=== PATIENT | male | born 1965 | race Caucasian/White ===

== ENCOUNTER → 2016-10-05 | Outpatient (REF) | payer OTHER ==
[~2016-10-05] MED LIST: AMLO10TA2 PO; ASP325T PO; HCT25T PO; LISI10TA PO; LISI1TAB8 PO; METO-272 PO; METO25TA2 PO; NIAC10002 PO; OMEG-160 PO; ROSU40TA PO
== END | disposition home or self-care (01) ==
LOC: RAD 07:55
PROVIDERS: ATTEND Nurse Practitioner Family

== ENCOUNTER → 2016-11-13 | Outpatient (CLI) | payer OTHER ==
[~2016-11-13] MED LIST changes: +CATHETER FLUSH 10 ML SYR IV PRN
[2016-11-13 09:27] VITALS: BP 140/91
[2016-11-13 09:35] VITALS: BP 172/60
[2016-11-13 09:37] VITALS: BP 165/94
[2016-11-13 09:39] VITALS: BP 165/95
--- NOTE | 2016-11-13 13:06 | STRESS TEST ---
DATE OF SERVICE: 11/13/2016 LEXISCAN MYOVIEW STRESS TEST REPORT: REFERRING PHYSICIAN: Dr. Jose Chance Baseline heart rate is 87. Baseline blood pressure 181/85. Baseline EKG is sinus rhythm with no ischemic changes. In summary, the patient was injected with 10.75 mCi of technetium-99 Myoview and the resting images were obtained. Then, the patient started exercising with the baseline heart rate, blood pressure and EKG mentioned above. At peak stress level, he was injected with 29.3 mCi of technetium-99 Myoview. The patient was able to exercise for a total of 4 minutes and 52 seconds on standard Miky protocol, achieving maximum heart rate of 156, which is 91% of maximum expected heart rate. With peak exercise level, EKG was showing minimal nondiagnostic changes. Blood pressure was 184/92. During recovery, heart rate and blood pressure returned to baseline. EKG returned to baseline. The resting and stress images were reviewed and compared in the short axis, horizontal long axis, and vertical long axis views. Review of the images showed diaphragmatic attenuation with decreased uptake involving the mid to apical inferior wall and inferolateral wall and anterolateral wall. SSS is 11, SDS 5, TID value 1.01. On the gated images, the left ventricle appeared to be normal size with normal contractility. Calculated ejection fraction 68%. CONCLUSION: 1. Fair exercise tolerance, a total of 4 minutes 52 seconds on standard Miky protocol, total of 6.8 METS achieving 91% of maximum expected heart rate. 2. Baseline hypertension persisted throughout test. 3. Minimal nondiagnostic EKG changes with exercise returned to baseline during recovery. 4. Diaphragmatic attenuation with mild ischemia involving the mid to apical inferior wall, inferolateral wall and anterolateral wall. 5. Normal left ventricular size with normal contractility. Calculated ejection fraction 68%. Job ID: [id number] DocumentID: [id number] Dictated Date: 11/13/2016 11:40:52 Instant Powder Supervisor Date: 11/13/2016 13:02:47 Dictated By: QUE CONDE MD
== END ==
LOC: CARD 08:01
PROVIDERS: ATTEND Physician Assistant
DX: I25.10 Atherosclerotic heart disease of native coronary artery without angina pectoris (principal); I10 Essential (primary) hypertension; E78.2 Mixed hyperlipidemia; E66.01 Morbid (severe) obesity due to excess calories
CPT/HCPCS: 78452; 93017

== ENCOUNTER → 2016-11-16 | Outpatient (CLI) | payer OTHER ==
[~2016-11-16] MED LIST changes: +ASPI-983 PO; -CATHETER FLUSH 10 ML SYR IV PRN; +CLOP75TA28 PO; -METO-272 PO; +METO-370 PO
== END ==
LOC: CARD 13:05
PROVIDERS: ATTEND Physician Assistant
DX: I25.10 Atherosclerotic heart disease of native coronary artery without angina pectoris (principal); I10 Essential (primary) hypertension; E78.2 Mixed hyperlipidemia; E66.01 Morbid (severe) obesity due to excess calories
CPT/HCPCS: 93306

== ENCOUNTER 2016-12-06 06:34 | Day surgery (SDC) | payer OTHER ==
[2016-12-06] VITALS (26 sets, daily range): BP systolic 90–152; BP diastolic 51–101
[~2016-12-06] VITALS: Ht 160 cm; Wt 104.3 kg
[~2016-12-06 06:34] MED LIST changes: -ASPI-983 PO; -CLOP75TA28 PO; +METO-272 PO; -METO-370 PO
[2016-12-06] MEDS ORDERED: NS IV 1000 ML 1,000 ML ONE (06:44)
[2016-12-06] MEDS ORDERED: HEParin (CATH LAB) 2,000 ML IV ONE (06:44)
[2016-12-06 07:14] LABS: MEAN PLATELET VOLUME 8.3 FL (7.4-10.4); RED BLOOD COUNT 5.25 10^6/uL (4.35-5.85); RED CELL DISTRIBUTION WIDTH 12.8 % (10.0-14.5); WHITE BLOOD COUNT 8.3 10^3/uL (4.3-11.0)
[2016-12-06 07:25] LABS: INR 0.9 (0.8-1.4); PROTHROMBIN TIME PATIENT 12.5 SEC (12.2-14.7)
[2016-12-06] MEDS ORDERED: CLOP75TA28 PO (07:28)
[2016-12-06] MEDS: NS IV 1000 ML 1,000 ML IV SCH ×4 (07:29→20:18)
[2016-12-06] MEDS ORDERED: INFLUENZA TRIvalent 2017-2018 0.5 ML/45 MCG SYR IM ONE (07:30)
[2016-12-06] MEDS ORDERED: MIDAZOLAM 5 MG/5 ML (VERSED) VIAL ONE (07:31)
[2016-12-06] MEDS ORDERED: fentaNYL INJECTION 100 MCG/2 ML AMP ONE ×2 (07:31→08:19)
[2016-12-06 07:38] LABS: ALANINE AMINOTRANSFERASE 40 U/L (0-55); ALBUMIN 4.6 GM/DL (3.2-4.5); ANION GAP 10 MMOL/L (5-14); ASPARTATE AMINO TRANSFERASE 22 U/L (5-34); BILIRUBIN,TOTAL 0.4 MG/DL (0.1-1.0); BLOOD UREA NITROGEN 8 MG/DL (7-18); BUN/CREATININE RATIO 10; CALCIUM 9.7 MG/DL (8.5-10.1); CARBON DIOXIDE 26 MMOL/L (21-32); CHLORIDE 97 MMOL/L (98-107); CHOLESTEROL 173 MG/DL (< 200); CREATININE SERUM 0.77 MG/DL (0.60-1.30); DIRECT LDL 100 MG/DL (1-129); GFR ESTIMATED > 60; GLUCOSE 117 MG/DL (70-105); POTASSIUM 3.7 MMOL/L (3.6-5.0); SODIUM 133 MMOL/L (135-145); TOTAL PROTEIN 7.6 GM/DL (6.4-8.2); TRIGLYCERIDES 327 MG/DL (<150); VLDL CHOLESTEROL 65 MG/DL (5-40)
--- NOTE | 2016-12-06 07:55 | Diagnostic Imaging Report ---
INDICATION: Coronary artery disease and hypertension. 0721 hours Comparison is made study of 06/23/2015. FINDINGS: Heart size and pulmonary vascularity are within normal limits, and the lungs are clear, bilaterally. There has been interval median sternotomy and coronary artery bypass. IMPRESSION: Unremarkable chest. Dictated by: Dictated on workstation # [id number]
--- NOTE | 2016-12-06 08:08 | Cardiac Procedure Note-CS/ASA ---
Pre-Procedure Note Pre-Op Procedure Note H&P Reviewed The H&P was reviewed, patient examined and no changes noted. Date H&P Reviewed: Dec 06, 2016 Time H&P Reviewed: 08:08 Conscious Sedation Pre-Proced Time Reviewed: 08:08 ASA Class: 3 Airway Mallampati Classification: (prairie band appropriate class) I. II. III, IV Lungs Heart ASA score ASA 1: a normal healthy patient ASA 2: a patient with a mild systemic disease (mid diabetes, controlled hypertension, obesity x ASA 3: a patient with a severe systemic disease that limits activity (angina , COPD, prior Myocardial infarction) ASA 4: a patient with an incapacitating disease that is a constant threat to life (CHF, renal failure) ASA 5: a moribund patient not expected to survive 24 hrs. (ruptured aneurysm) ASA 6: a declared brain patient whose organs are being harvested. For emergent operations, add the letter E after the classification Grade 3 Sedation Plan: Analgesia, Amnesia, Plan communicated to team members, Discussed options with patient/fam, Discussed risks with patient/fam Note The patient is an appropriate candidate to undergo the planned procedure, sedation, and anesthesia. The patient immediately re-assessed prior to indication. QUE CONDE MD Dec 06, 2016 08:08
[2016-12-06] MEDS ORDERED: NITROGLYCERIN DRIP 25 MG/D5W 250 ML IV ONE (08:17)
[2016-12-06] MEDS ORDERED: HEParin 1000 UNIT/ML (10ML VIAL) FOR BOLUS ONE (08:17)
[2016-12-06] MEDS ORDERED: MIDAZOLAM 2 MG/2 ML (VERSED) VIAL ONE (08:35)
[2016-12-06] MEDS ORDERED: CLOPIDOGREL 300 MG (PLAVIX) TABLET PO ONE (08:57)
[2016-12-06] MEDS ORDERED: ASPIRIN 81 MG CHEW (CHILDREN'S ASA) ONE ×2 (08:57→09:32)
[2016-12-06] MEDS ORDERED: PATIENT MAY USE OWN MEDS, ALL PO SCH (09:45)
--- NOTE | 2016-12-06 09:47 | Cardiac Cath Report ---
Cardiac Cath Report Physician (s)/Jewelry Sorter (s) Physician QUE CONDE MD Pre-Procedure Diagnosis Pre-Procedure Diagnosis: coronary artery disease Post-Procedure Note Procedure Start Date: Dec 06, 2016 Procedure Start Time: 08:00 Name of Procedure: left heart catheterization, vein graft angiogram, BILL angiogram PTCA with stent to the circumflex artery Findings/Procedure Note PROCEDURE NOTE: After explaining the procedure to the patient, all pros and cons were explained, all questions were answered. The patient signed the consent and then she was placed on the cardiac catheterization laboratory. The patient was placed on the cardiac catheterization laboratory. Groin was prepped SL fashion local anesthesia was used. Sheath placed in the artery. Ivanna right and left catheter were used to access the coronary system. Pigtail was used to access the left ventricular cavity. Left ventriculogram was not done, pressure was measured Aortic arch angiogram was done Patient received 5000 units of heparin then 3000 units of heparin, intervention of the circumflex artery was done, patient is very tortuous artery with severe disease, subtotal occlusion at the midportion 70 percent proximally. I used for different guides, was able to advance a wire to the distal circumflex artery , had difficulty advancing stent to the mid circumflex artery, I tried giorgi wire, Guideliner, I was unable to advance the wire, I did multiple balloon angioplasty to the proximal and mid circumflex artery with good results, proximally I deployed the stent a 2.515 mm Xience Alpine to the proximal circumflex, unable to reach the mid with a stent, balloon angioplasty was done with excellent results, 20-30 percent residual stenosis in the midcircumflex artery, distally there is moderate disease. At the end of the procedure the sheath was removed. Closure device was not used FINDINGS: Hemodynamics LV 131/14, end-diastolic pressure 14 Aorta 126/78 mean of 100 ANATOMY: Left Main has moderate disease Left Anterior Descending he has patent stent, competitive flow from the HERNÁNDEZ, occluded diagonal artery and vein graft to the diagonal artery Left Circumflex is very tortuous artery with severe disease proximal, subtotal mid, moderate disease distally, complex intervention with multiple guides and wires with deployment of 2.515 mm Xience Alpine to the proximal circumflex artery, balloon angioplasty with 2.515 mm to the mid circumflex artery, unable to push a stent to the mid circumflex artery with excellent results. The vein graft to the circumflex artery is occluded Right Coronory Artery is totally occluded with patent vein graft to the right coronary artery Vein graft to the right coronary artery is patent with excellent flow distally 2 occluded vein grafts probably to the diagonal artery and obtuse marginal branch Patent HERNÁNDEZ to the LAD with excellent flow in the distal LAD LV Gram was not done, pressure was measured Aorta evaluation done with a aortic arch angiogram which showed hypertensive changes with consultation of the aortic arch, origin of the great neck vessels appeared tortuous with no obstructive disease. CONCLUSION: 1. Severe disease at the proximal and mid circumflex artery with occluded vein graft to the obtuse marginal branch, complex intervention, successful balloon angioplasty and stent to the proximal circumflex artery with excellent results, unable to advance stent to the mid circumflex artery, successful balloon angioplasty with reduction of 95 percent stenosis to 20-30 percent stenosis 2. Occluded right coronary artery with patent vein graft to the right coronary artery 3. Patent HERNÁNDEZ to LAD with good flow distally with occluded vein graft to the diagonal artery 4. Normal left ventricular end-diastolic pressure 5. Hypertensive changes in the aortic arch and great neck vessels DISCUSSION AND RECOMMENDATION: continue maximizing medical therapy. Anesthesia Type: Conscious Sedation Estimated blood loss (mL): 25 ml Contrast Amount: 250 ml Total Radiation Dose: 4230 mGy Post-Procedure Diagnosis Post-operative diagnosis: coronary artery disease Hypertension Hyperlipidemia CABG QUE CONDE MD Dec 06, 2016 09:47
[2016-12-06] MEDS ORDERED: fentaNYL INJECTION 100 MCG/2 ML AMP IVP ONE (12:30)
[2016-12-06] MEDS ORDERED: meTOproloL SUCCINATE 50 MG (TOPROL XL) TAB PO SCH (21:00)
[2016-12-06] MEDS ORDERED: lisINopril 20 MG (ZESTRIL) TAB PO SCH (21:00)
[2016-12-06] MEDS ORDERED: HYDROCHLOROTHIAZIDE 12.5 MG (HCTZ) CAP PO SCH (21:00)
[2016-12-07] VITALS: BP 130/89
[2016-12-07] MEDS: NS IV 1000 ML 1,000 ML IV SCH ×2 (03:09→06:15)
[2016-12-07 04:55] VITALS: BP 130/93
[2016-12-07 05:07] LABS: MEAN PLATELET VOLUME 8.5 FL (7.4-10.4); RED BLOOD COUNT 4.8 10^6/uL (4.35-5.85); RED CELL DISTRIBUTION WIDTH 12.8 % (10.0-14.5)
[2016-12-07 05:36] LABS: ALANINE AMINOTRANSFERASE 32 U/L (0-55); ALBUMIN 4.1 GM/DL (3.2-4.5); ANION GAP 12 MMOL/L (5-14); ASPARTATE AMINO TRANSFERASE 15 U/L (5-34); BILIRUBIN,TOTAL 0.5 MG/DL (0.1-1.0); BLOOD UREA NITROGEN 10 MG/DL (7-18); BUN/CREATININE RATIO 14; CALCIUM 9.4 MG/DL (8.5-10.1); CARBON DIOXIDE 21 MMOL/L (21-32); CHLORIDE 97 MMOL/L (98-107); CREATININE SERUM 0.71 MG/DL (0.60-1.30); GFR ESTIMATED > 60; GLUCOSE 108 MG/DL (70-105); POTASSIUM 3.8 MMOL/L (3.6-5.0); SODIUM 130 MMOL/L (135-145); TOTAL PROTEIN 6.8 GM/DL (6.4-8.2)
[2016-12-07 07:51] VITALS: BP 143/93
[2016-12-07] MEDS ORDERED: ASPI-983 PO (08:20)
--- NOTE | 2016-12-07 08:21 | Discharge Inst-Post CATH ---
Discharge Inst-CATH Post Cardiac Cath D/C Inst Follow Up/Plan Appointment with Dr. Abdalla's office in 2-4 weeks CARDIAC CATH DISCHARGE INSTRUCTIONS *Hold Metformin for 48 hours post heart cath. ACTIVITY * Go Home directly and rest. * Limit activity of the leg (or wrist if it was used) for 7 days including aerobics, swimming, jogging, bicycling, etc. * Restrict stair-climbing for 7 days if possible, if not, climb up with your non -cath leg, then bring together on the same step. * Avoid lifting, pushing, pulling or excessive movement of the affected extremity for 7 days. * Customary sexual activity may be resumed after 2 days-use caution not to use a position that strains or causes pain to the affected extremity. * No driving for 24 hours. * NO SMOKING. * Avoid straining for bowel movements for 7 days. * Gentle walking on level ground is allowed. * Returning to work will depend on the type of procedure and the results. Your doctor will discuss this with you. CALL YOUR DOCTOR FOR ANY OF THE FOLLOWING: *If bleeding from the puncture site occurs- Apply gentle pressure to site with clean cloth and call your doctor or EMS. * If a knot or lump forms under the skin, increases in size, or causes pain. * If bruising appears to be worsening or moving further down your leg instead of disappearing. * Temperature above 101 F. CARE OF YOUR GROIN INCISION; * Bruising or purple discoloration of the skin near the puncture site is common. * You may shower only, no bathtub bathing for 5 days. Be careful to avoid slipping as your leg may feel stiff. * If a closure device was used on your femoral artery, please see the attached guide regarding care of the device and your leg. * REMOVE the dressing from your groin the next day after your procedure in the shower. CARE OF YOUR WRIST INCISION; * Bruising or purple discoloration of the skin near the puncture site is common. * You may shower. * DO NOT submerge wrist. * Remove dressing in 24 hours. QUE ABDALLA MD Dec 07, 2016 08:20
--- NOTE | 2016-12-07 08:23 | Cardiology Progress Note ---
Subjective Date Seen by Provider: Dec 07, 2016 Time Seen by Provider: 08:21 Subjective/Events-last exam patient is sitting in a chair, feeling well, denied any chest pain or shortness of breath. No palpitation. Groin is healing well. Review of Systems General: No Chills, No Night Sweats, No Fatigue, No Malaise, No Appetite, No Other HEENT: No Head Aches, No Visual Changes, No Eye Pain, No Ear Pain, No Dysphasia , No Sinus Congestion, No Post Nasal Drip, No Sore Throat, No Other Pulmonary: No Dyspnea, No Cough, No Pleuritic Chest Pain, No Other Cardiovascular: No: Chest Pain, Palpitations, Orthopnea, Paroxysmal Noc. Dyspnea, Edema, Lt Headedness, Other Objective-Cardiology Exam Last Set of Vital Signs Vital Signs 12/07/16 12/07/16 07:14 07:51 Temp 97.1 Pulse 55 Resp 20 B/P (MAP) 143/93 Pulse Ox 96 O2 Delivery Room Air O2 Flow Rate 2.00 Capillary Refill : Less Than 3 Seconds I&O Intake and Output 12/07/16 23:59 Intake Total 780 ml Balance 780 ml Intake Oral 780 ml # Voids 4 General: Alert, Oriented X3, Cooperative HEENT: Atraumatic, PERRLA Neck: Supple, No JVD, No Thyromegaly Lungs: Clear to Auscultation, Normal Air Movement Heart: Regular Rate, Normal S1, Normal S2, No Murmurs Abdomen: Normal Bowel Sounds, Soft, No Tenderness, No Hepatosplenomegaly, No Masses Extremities: No Clubbing, No Cyanosis, No Edema, Normal Pulses, No Tenderness/ Swelling Skin: No Rashes, No Breakdown, No Significant Lesion Neuro: Normal Gait, Normal Speech, Strength at 5/5 X4 Ext, Normal Tone, Sensation Intact Psych/Mental Status: Mental Status NL, Mood NL Results Lab Laboratory Tests 12/07/16 04:40 A/P-Cardiology Admission Diagnosis coronary artery disease Hypertension Hyperlipidemia Obesity Assessment/Plan Coronary artery disease status post heart catheterization and stent 1. Severe disease at the proximal and mid circumflex artery with occluded vein graft to the obtuse marginal branch, complex intervention, successful balloon angioplasty and stent to the proximal circumflex artery with excellent results, unable to advance stent to the mid circumflex artery, successful balloon angioplasty with reduction of 95 percent stenosis to 20-30 percent stenosis 2. Occluded right coronary artery with patent vein graft to the right coronary artery 3. Patent HERNÁNDEZ to LAD with good flow distally with occluded vein graft to the diagonal artery 4. Normal left ventricular end-diastolic pressure 5. Hypertensive changes in the aortic arch and great neck vessels Hypertension, controlled, continue current medication Hyperlipidemia, continue current medications BMI 40, educated on weight loss Educated on taking aspirin and Plavix for at least 1 year. QUE CONDE MD Dec 07, 2016 08:23
[2016-12-07] MEDS ORDERED: CLOPIDOGREL 75 MG (PLAVIX) TABLET PO SCH (09:00)
[2016-12-07] MEDS ORDERED: ASPIRIN E.C. 81 MG (ECOTRIN) TAB PO SCH (09:00)
[2016-12-07] MEDS ORDERED: amLODIPine 10 MG (NORVASC) TAB PO SCH (09:00)
[2016-12-07] MEDS ORDERED: ROSUVASTATIN CALCIUM 40 MG PO SCH (09:00)
[2016-12-07 10:00] VITALS: BP 143/93
== END 2016-12-07 10:00 | disposition home or self-care (01) ==
LOC: CATH 06:34 → ICU 10:10 → CATH 12-07 10:00
PROVIDERS: ATTEND Internal Medicine Cardiovascular Disease
DX: I25.10 Atherosclerotic heart disease of native coronary artery without angina pectoris (principal); I25.82 Chronic total occlusion of coronary artery; I25.810 Atherosclerosis of coronary artery bypass graft(s) without angina pectoris; I10 Essential (primary) hypertension; I25.2 Old myocardial infarction; R94.39 Abnormal result of other cardiovascular function study; E66.9 Obesity, unspecified; E78.2 Mixed hyperlipidemia; Z68.41 Body mass index [BMI] 40.0-44.9, adult; Z91.19 Patient's noncompliance with other medical treatment and regimen; Z79.899 Other long term (current) drug therapy
CPT/HCPCS: 36221; 36415; 71010; 80053; 80061; 85027; 85347; 85610; 85730; 87081; 93005; 93459

== ENCOUNTER → 2020-08-27 | Outpatient (CLI) | payer OTHER ==
[~2020-08-27] MED LIST changes: +AMLO-251 PO; -AMLO10TA2 PO; +ASPI-1238 PO; +CLOP75TA28 PO; +LISI1TAB46 PO; -LISI1TAB8 PO; -METO-272 PO; +METO50TA7 PO
--- NOTE | 2020-08-27 11:18 | Diagnostic Imaging Report ---
INDICATION: Coronary artery disease, chest pain. COMPARISON: 12/06/2016. FINDINGS: Frontal and lateral views of the chest demonstrate stable cardiac enlargement without overt pulmonary edema. There is a new nodule in the right lung base of uncertain etiology. Left lung is clear. There is no pneumothorax or effusion. Sternal wires midline. Osseous structures stable. IMPRESSION: 1. New nodule right lung base. This could represent the patient's nipple shadow. Consider CT imaging. 2. Cardiac enlargement without pulmonary edema. Dictated by: Dictated on workstation # [id number]
== END ==
LOC: RAD 10:14
PROVIDERS: ATTEND Family Medicine
DX: I51.7 Cardiomegaly (principal); I25.10 Atherosclerotic heart disease of native coronary artery without angina pectoris
CPT/HCPCS: 71046

== ENCOUNTER 2022-09-06 14:51 | Emergency (ER) | payer OTHER ==
[~2022-09-06] VITALS: Ht 160 cm; Wt 121.0 kg
--- NOTE | 2022-09-06 15:04 | ED Upper Extremity ---
General Chief Complaint: Upper Extremity Stated Complaint: RT THUMB INJ Nursing Triage Note: PT AMB TO RM 7 PT STATES FELL AND SMASHED R THUMB BETWEEN TRASH CAN AND CONTAINER. PT R THUMB NAIL AVULSION. RATES PAIN 6/10 AND NUMBNESS. DENIES OTHER INJURY FROM FALL Source: patient Exam Limitations: no limitations History of Present Illness Date Seen by Provider: Sep 06, 2022 Time Seen by Provider: 14:58 Initial Comments 57-year-old male presents to the ER with complaint of right thumb injury. He states that around 2:45 PM he was walking carrying film and fell, his thumb got smashed between the film and a trash can. States his last tetanus was less than 3 years ago. Allergies and Home Medications Allergies Coded Allergies: sumatriptan (Unverified Allergy, Mild, "FLU LIKE SYMPTOMS", 09/07/08) Patient Home Medication List Home Medication List Reviewed: Yes Amlodipine Besylate (Amlodipine Besylate) 10 Mg Tablet, 10 MG PO DAILY, (Reported) Entered as Reported by: WENDY MOTLEY on 06/23/15916 Aspirin (Aspirin EC) 81 Mg Tablet.dr, 81 MG PO DAILY Prescribed by: QUE CONDE on 12/07/16 0820 Cephalexin (Cephalexin) 500 Mg Tablet, 500 MG PO QID Prescribed by: Viola Rojas on 09/06/22 1733 Clopidogrel Bisulfate (Clopidogrel) 75 Mg Tablet, 75 MG PO DAILY, (Reported) Entered as Reported by: LISA RIVAS on 12/06/16 0728 Hydrocodone/Acetaminophen (Hydrocodone-Acetamin 5-325 mg) 5 Mg-325 Mg Tablet, 1 TAB PO Q4H PRN for PAIN-MODERATE (5-7) Prescribed by: Viola Rojas on 09/06/22 1734 Lisinopril/Hydrochlorothiazide (Lisinopril-Hctz 20-12.5 mg Tab) 1 Each Tablet, 1 TAB PO BID, (Reported) Entered as Reported by: WENDY MOTLEY on 06/23/15916 Metoprolol Succinate (Metoprolol Succinate) 50 Mg Tab.er.24h, 50 MG PO HS, (Reported) Entered as Reported by: WENDY MOTLEY on 06/23/15916 [place]-3/Dha/Epa/Fish Oil (Fish Oil 1,000 mg Softgel) 1 Each Capsule, 1,000 MG PO DAILY, (Reported) Entered as Reported by: WENDY MOTLEY on 06/23/15916 Rosuvastatin Calcium (Crestor) 40 Mg Tablet, 40 MG PO DAILY, (Reported) Entered as Reported by: WENDY MOTLEY on 06/23/15916 Review of Systems Constitutional: see HPI Past Szuxrip-Ffncvl-Bdaykw Hx Patient Social History Tobacco Use?: No Substance use?: No Alcohol Use?: Yes Alcohol type: Beer Alcohol Frequency: Once in a while Pt feels they are or have been: No Past Medical History Surgery/Hospitalization HX: CARDIAC HX, HTN, CABG Reproductive Disorders: No Physical Exam Vital Signs Vital Signs - First Documented 09/06/22 09/06/22 14:55 17:44 Temp 36.9 Pulse 101 Resp 16 B/P (MAP) 150/100 (117) Pulse Ox 96 O2 Delivery Room Air Capillary Refill : Less Than 3 Seconds Height, Weight, BMI Height: 5'3.00" Weight: 230lbs. 0.0oz. 104.794946ne; 47.00 BMI Method:Stated General Appearance: WD/WN, no apparent distress Neck: supple, normal inspection Cardiovascular: regular rate, rhythm Respiratory: lungs clear, normal breath sounds, no respiratory distress, no accessory muscle use Hand: Right (Right thumb smashed, large laceration as well as several small lacerations, sensation intact distally, cap refill less than 2 seconds, full range of motion of thumb), laceration (Right thumb) Neurologic/Psychiatric: alert, normal mood/affect Skin: normal color, warm/dry Procedures/Interventions Wound Location: Upper Extremities Other Wound Location Distal end of right first digit Wound's Depth, Shape: linear, flap Wound Explored: clean Irrigated w/ Saline (ccs): 250 Anesthesia: 1% Lidocaine Volume Anesthetic (ccs): 2 Wound Debrided: minimal Suture: Ethlion Suture Size: 4-0 Number of Sutures: 13 Progress/Results/Core Measures Results/Orders My Orders Orders - VIOLA WILKERSON APRN Finger(S) (09/06/22 15:01) Hydrocodone/Apap 10/325 Tablet (Lortab 1 (09/06/22 15:30) Ceftriaxone Inj (Rocephin Inj) (09/06/22 15:30) Lidocaine 1% Inj 20 Ml (Xylocaine 1% Inj (09/06/22 15:30) Medications Given in ED Current Medications Medications Dose Ordered Sig/Lurdes Route Start Time Stop Time Status Last Admin Dose Admin Acetaminophen/ Hydrocodone Bitart 1 ea ONCE ONCE PO 09/06/22 15:30 09/06/22 15:31 DC 09/06/22 15:44 1 EA Ceftriaxone Sodium 2,000 mg ONCE ONCE IM 09/06/22 15:30 09/06/22 15:31 DC 09/06/22 16:16 2,000 MG Lidocaine HCl 4.2 ml ONCE ONCE INJ 09/06/22 15:30 09/06/22 15:31 DC 09/06/22 16:16 4.2 ML Vital Signs/I&O 09/06/22 09/06/22 14:55 17:44 Temp 36.9 36.9 Pulse 101 90 Resp 16 16 B/P (MAP) 150/100 (117) 147/91 Pulse Ox 96 98 O2 Delivery Room Air Blood Pressure Mean: 117 Progress Progress Note : Progress Note Patient seen and evaluated, resting comfortably in bed, no acute distress. Based on exam and symptoms, x-ray of left thumb ordered. 1526 X-ray image reviewed by me, comminuted fracture noted to the distal first phalanx. Speonk and Rocephin injection ordered. 1729 laceration repaired, see procedure note. Wound continued to have some bleeding after laceration was repaired. A couple of attempts were made to stop the bleeding. Surgicel placed, large pressure dressing placed with a finger splint. Patient instructed to leave the dressing in place for 24 hours. Will prescribe antibiotic and have patient follow-up with orthopedics. Discharge instructions and return precautions provided. Diagnostic Imaging Diagonstic Imaging: Xray Plain Films/CT/US/NM/MRI: hand Comments [facility]. [place], [place] NAME: CHRISTOPHER CORONADO [facility] REC#: [id number] PT STATUS: REG ER : 1965 PHYSICIAN: VIOLA WILKERSON APRN ADMIT DATE: 09/06/22/ER Signed Date of Exam:09/06/22 FINGER(S) EXAMINATION: Right thumb radiograph TECHNIQUE: AP and lateral views of the right thumb obtained. HISTORY: thumb injury COMPARISON: None available. FINDINGS: Acute comminuted fracture of the right distal phalanx extending into the tuft and into the base of the phalanx. Associated soft tissue edema. Joint spaces are maintained. No unexpected radiopaque foreign body. IMPRESSION: Acute mildly displaced comminuted fracture of the distal 1st phalanx. Dictated by: Dictated on workstation # [id number] Dict: 09/06/22 1513 Trans: 09/06/22 1643 [facility] [id number] Interpreted by: DELFINO SALAZAR DO Electronically signed by: DELFINO SALAZAR DO 09/06/22 1643 Departure Impression Primary Impression: Thumb fracture Qualified Codes: S62.521B - Displaced fracture of distal phalanx of right thumb, initial encounter for open fracture Disposition: HOME, SELF-CARE Condition: Stable Departure-Patient Inst. Decision time for Depature: 17:29 Referrals: YINKA LEBRON MD, CHAD C MD (PCP/Family) Primary Care Physician Patient Instructions: Finger Fracture (DC) Add. Discharge Instructions: Complete full course of antibiotic as directed. Do not use your thumb. You may remove the bandage after 24 hours. After you remove the bandage, put the splint back on to keep you from bending the thumb. Elevate your hand tonight to help reduce bleeding. Take Speonk as needed for pain, this may make you sleepy, do not drive or operate heavy machinery. You may also take ibuprofen as needed for pain. Call orthopedics tomorrow to schedule a follow-up appointment. Return in 7 to 10 days to have the sutures removed. Keep the wound clean and dry, after you remove the dressing, you may wash your hands with soap and water, let water run over it, do not scrub hard, do not soak your hand. Return for any new, concerning, or worsening symptoms. All discharge instructions reviewed with patient and/or family. Voiced understanding. Scripts Hydrocodone/Acetaminophen (Hydrocodone-Acetamin 5-325 mg) 5 Mg-325 Mg Tablet 1 TAB PO Q4H PRN for PAIN-MODERATE (5-7), #10 TAB 0 Refills Prov: VIOLA WILKERSON RABBLE F[employer]NACE TENDER 09/06/22 Cephalexin (Cephalexin) 500 Mg Tablet 500 MG PO QID for 7 Days, #28 TAB 0 Refills Prov: VIOLA WILKERSON APRN 09/06/22 Work/School Note: Work Release Form Date Seen in the Emergency Department: Sep 06, 2022 Return to Work: Sep 07, 2022 Restrictions: Need Release from Doctor Other Restrictions Listed Below: No use of right hand until cleared by orthopedics VIOLA ROJAS APRN Sep 06, 2022 15:04
[2022-09-06] MEDS ORDERED: cefTRIAXone 2,000 MG VIAL IM ONE (15:30)
[2022-09-06] MEDS ORDERED: LIDOCAINE 1% INJ 20 ML VIAL INJ ONE (15:30)
--- NOTE | 2022-09-06 16:45 | Diagnostic Imaging Report ---
EXAMINATION: Right thumb radiograph TECHNIQUE: AP and lateral views of the right thumb obtained. HISTORY: thumb injury COMPARISON: None available. FINDINGS: Acute comminuted fracture of the right distal phalanx extending into the tuft and into the base of the phalanx. Associated soft tissue edema. Joint spaces are maintained. No unexpected radiopaque foreign body. IMPRESSION: Acute mildly displaced comminuted fracture of the distal 1st phalanx. Dictated by: Dictated on workstation # [id number]
[2022-09-06] MEDS ORDERED: ACHD5005 PO (17:33)
[2022-09-06] MEDS ORDERED: CEPH500T PO (17:33)
[2022-09-06 17:44] VITALS: BP 147/91
== END 2022-09-06 17:45 | disposition home or self-care (01) ==
LOC: EDUNIT# 14:51 → ER 14:58
DX: S62.521A Displaced fracture of distal phalanx of right thumb, initial encounter for closed fracture (principal); S61.101A Unspecified open wound of right thumb with damage to nail, initial encounter; W23.1XXA Caught, crushed, jammed, or pinched between stationary objects, initial encounter; W18.30XA Fall on same level, unspecified, initial encounter; Y93.01 Activity, walking, marching and hiking
CPT/HCPCS: 73140